=== PATIENT | female | born 1965 | race Caucasian/White ===

== ENCOUNTER 2016-06-06 10:58 | Emergency (ER) | payer OTHER ==
[~2016-06-06 10:58] MED LIST: CEFPROZIL500 MG PO; FLAGYL500 MG PO; GAS RELIEF80 MG PO; HCTZ25 MG PO; HYDROCODON-ACE1 EAC2 PO; LOPRESSOR50 MG PO; NORVASC5 MG PO; TOPROL XL100 MG PO; XANAX0.5 MG PO; ZESTRIL40 MG PO
== END 2016-06-06 11:44 | disposition home or self-care (01) ==
LOC: ER 10:58
DX: R05 Cough (principal); J02.9 Acute pharyngitis, unspecified; I10 Essential (primary) hypertension; J30.2 Other seasonal allergic rhinitis; Z87.19 Personal history of other diseases of the digestive system; Z90.49 Acquired absence of other specified parts of digestive tract; Z79.899 Other long term (current) drug therapy
CPT/HCPCS: 99282